=== PATIENT | female | born 1970 | race Caucasian/White ===

== ENCOUNTER 2019-02-15 12:28 | Outpatient (CLI) | payer OTHER | END 2019-02-15 12:46 | disposition home or self-care (01) | LOC: SONOGRAMA 12:28 | DX: N60.11 Diffuse cystic mastopathy of right breast (principal); N60.12 Diffuse cystic mastopathy of left breast; R92.0 Mammographic microcalcification found on diagnostic imaging of breast ==

== ENCOUNTER 2025-02-27 07:45 | Inpatient (IN) | payer OTHER ==
[~2025-02-27] VITALS: Wt 71.2 kg
[2025-02-27] MEDS ORDERED: ALDACTONE25 MG PO (08:12)
[2025-02-27] MEDS ORDERED: OZEMPIC0.25 MG/02 SQ (08:12)
[2025-02-27 08:14] VITALS: BP 144/82
[2025-02-27 08:22] LABS: BASO % 0.7 % (0.1-1.2); EOS # 0.29 (0.04-0.54); EOS % 4.1 % (0.7-7.0); HEMATOCRIT 44.6 % (34.1-44.9); HEMOGLOBIN 14.9 g/dL (11.2-15.7); LYMPH # 2.77 (1.18-3.74); LYMPH % 39.1 % (19.3-53.1); MEAN CORPUSCULAR HEMOGLOBIN 28.1 pg (25.6-32.2); MONO # 0.37 (0.24-0.82); MONO % 5.2 % (4.7-12.5); NEUT % 50.8 % (34.0-71.1); PLATELET COUNT 287 K/uL (163-369); RED CELL DISTRIBUTION WIDTH 13.1 % (11.6-14.4)
[2025-02-27 08:25] LABS: URINE APPEARANCE Clear; URINE BILIRRUBIN Negative (NEGATIVE); URINE BLOOD Negative; URINE COLOR Yellow; URINE GLUCOSE Negative (NEGATIVE); URINE KETONE Negative (NEGATIVE); URINE LEUKOCYTE Negative; URINE NITRATE Negative; URINE PROTEIN Negative (NEGATIVE); URINE UROBILINOGEN 0.2 E.U./dl
[2025-02-27 08:30] LABS: URINE BACTERIA 80.7 uL (0.0-1933); URINE EPITHELIAL CELLS 8.5 uL (0.0-38.8); URINE RBC 9.8 uL (0.0-20.8); URINE WBC 2.8 uL (0.0-23.2)
[2025-02-27 08:35] LABS: COVID-19 AG NEGATIVE (NEGATIVE)
[2025-02-27 08:46] LABS: INR 1.05; PARTIAL THROMBOPLASTIN TIME 29.3 SECONDS (22.0-34.0); PROTHROMBIN TIME 11.4 SECONDS (9.0-11.5)
[2025-02-27 09:27] LABS: ALBUMIN 3.9 gm/dL (3.4-5.0); BILIRUBIN TOTAL 1.04 mg/dL (0.3-1.2); CALCIUM 9.9 mg/dL (8.5-10.1); CREATININE SERUM 0.68 mg/dL (0.55-1.02); GFR 89.83; GLOBULINA 4.7 G/DL (2.4-3.5); POTASSIUM 4.64 mEq/L (3.5-5.1); TOTAL PROTEIN 8.6 gm/dL (6.4-8.2)
[2025-03-05] MEDS ORDERED: CEFAZOLIN SODIUM 1,000 MG VIAL ONE ×2 (12:19→17:07)
[2025-03-05] MEDS ORDERED: SUGAMMADEX SODIUM 200 MG/2 ML VIAL IV ONE (14:22)
[2025-03-05] MEDS ORDERED: ONDANSETRON HCL 2 MG/ML VIAL IV SCH (17:00)
[2025-03-05] MEDS ORDERED: MORPHINE SULFATE 2 MG/ML CARTRIDGE IV SCH (17:00)
[2025-03-05] MEDS ORDERED: CEFAZOLIN SODIUM 1,000 MG VIAL IV SCH (17:00)
[2025-03-05] MEDS ORDERED: ONDANSETRON HCL 2 MG/ML VIAL ONE (17:07)
[2025-03-05] MEDS ORDERED: KETOROLAC TROMETHAMINE 30 MG VIAL ONE (19:34)
[2025-03-05 19:41] VITALS: BP 144/82
[2025-03-06] MEDS ORDERED: KETOROLAC TROMETHAMINE 30 MG VIAL IV SCH
[2025-03-06 01:32] VITALS: BP 125/75
[2025-03-06 08:00] VITALS: BP 104/65
[2025-03-06] MEDS ORDERED: BISACODYL 5 MG TABLET.EC PO NR (09:00)
[2025-03-06] MEDS ORDERED: SIMETHICONE 125 MG CAPSULE PO SCH (09:00)
[2025-03-06] MEDS ORDERED: IBUprofen 800 MG TABLET PO SCH (13:00)
[2025-03-06] MEDS ORDERED: KETOROLAC TROMETHAMINE 10 MG TABLET PO SCH (14:00)
[2025-03-06] MEDS ORDERED: ACETAMINOPHEN 500 MG GEL..CAP PO SCH (14:00)
[2025-03-06] MEDS ORDERED: TRAMADOL HCL 50 MG TABLET PO PRN (15:00)
[2025-03-06 16:08] VITALS: BP 106/66
[2025-03-07 01:44] VITALS: BP 139/81
[2025-03-07 08:00] VITALS: BP 141/80
== END 2025-03-07 11:22 | disposition home or self-care (01) | DRG 743 ==
LOC: O/R 03-05 06:35 → SURH 03-05 07:45 → OB/GYN 03-05 16:01
PROVIDERS: ADMIT Obstetrics & Gynecology; ATTEND Obstetrics & Gynecology
PROC: 0UT70ZZ Resection of Bilateral Fallopian Tubes, Open Approach (ICD-10-PCS; 2025-03-05)
PROC: 0TNB0ZZ Release Bladder, Open Approach (ICD-10-PCS; 2025-03-05)
PROC: 0DNW0ZZ Release Peritoneum, Open Approach (ICD-10-PCS; 2025-03-05)
PROC: 0DN80ZZ Release Small Intestine, Open Approach (ICD-10-PCS; 2025-03-05)
PROC: 0UT90ZZ Resection of Uterus, Open Approach (ICD-10-PCS; principal; 2025-03-05 08:30)
DX: D25.9 Leiomyoma of uterus, unspecified (principal); N73.6 Female pelvic peritoneal adhesions (postinfective)